=== PATIENT | male | born 1940 | race Caucasian/White ===

== ENCOUNTER 2016-04-13 01:31 | Inpatient (IN) | payer OTHER ==
[~2016-04-13] VITALS: Ht 188 cm; Wt 102.1 kg
[~2016-04-13 01:31] MED LIST: ASPIRIN EC81 M1 PO; FLOMAX0.4 M1 PO
--- NOTE | 2016-04-13 15:06 | Operative Report ---
Operative/Inv Procedure Report Surgery Date: 04/13/16 Name of Procedure: Cystoscopy, laser litho bladder stones, TURP Pre-Operative Diagnosis: Bladder stones and prostatic hypertrophy Post-Operative Diagnosis: Same Estimated Blood Loss: 50ml to 100ml Surgeon/Planing Machine Operator: Bienvenido CARDONA,ATTILA Clark Anesthesia: laryngeal mask airway Drains: 22 Ethiopian three-way [place] for continuous bladder irrigation Specimens: Urine culture and prostate chips and bladder stone fragments Complications: None Condition: Stable Operative Indication: Multiple bladder stones and prostatic hypertrophy Operative/Procedure Note Note: The patient was taken to the cystoscopy room and identified. He was placed supine position on the cystoscopy table in a timeout was executed appropriately with the patient awake. Gen. anesthesia was induced via LMA. He was then placed in dorsal lithotomy position. Bimanual rectal exam revealed an enlarged, nonnodular prostate with no other palpable pelvic masses. He was prepped and draped in usual fashion for cystoscopy. Surgical pause was executed appropriately. The urethral meatus was dilated with sounds to 28 Ethiopian. The continuous flow cystoscope was then placed into the bladder under direct vision using the 30 lens. Anterior urethra was normal. The prostatic urethra showed bilateral lateral lobe prostatic hypertrophy with a length of 4-4/2 cm. Cystoscopy was performed. There were multiple stones in the bladder each about 1 cm in size. The bladder was mildly trabeculated. There was no evidence of bladder tumor or stone. Ureteral orifices were normal in location and appearance. 600 holmium laser fiber was placed through the continuous flow cystoscope. The bladder stones were fragmented. Using the Ellik evacuator all stone fragments were removed from the bladder. The bladder was left full and the cystoscope removed. The 26 Ethiopian resectoscope sheath was placed in the bladder using obturator. Ureteral orifices were identified as was the verumontanum. A TURP was then performed. First the left lateral lobe of the prostate was resected between 1 and 5:00 positions using the bladder neck as the proximal landmark and the verumontanum as a distal landmark. Hemostasis was obtained electrocautery. Next the right lateral lobe of the prostate was resected between the 7:00 and 11:00 positions using same landmarks. Hemostasis was obtained electrocautery. Next the floor the prostatic urethra between 5 and 7:00 positions was resected using the same landmarks. Hemostasis is obtained electrocautery. The roof of the prostatic fossa between 11 and 1:00 positions was resected using the same landmarks. At this point all prostate chips were irrigated from the bladder area hemostasis is obtained electrocautery. No significant bleeding was noted. The prostatic fossa appeared open. The bladder was left full and the resectoscope removed. A 22 Ethiopian three-way hematuria catheter was placed to was bladder irrigation begun with light drainage. Patient's blood pressure the time was 100/60. Patient tolerated the procedure well and as completion was taken to recovery room stable condition. Findings: multiple bladder stones about 1 cm each. Significant prostatic hypertrophy with obstruction Discharge Disposition: PACU
[2016-04-13 19:55] VITALS: BP 150/84
[2016-04-13 22:14] VITALS: BP 148/84
--- NOTE | 2016-04-14 00:12 | NUR ---
NURSING NOTE; LATE ENTRY; PT ADMITTED TO FROM PACU VIA STRETCHER AT 1955. PT ACCOMPANIED BY . PT ALERT AND ORIENTED X3. PT AFEBRILE, DENIES CP AND HAS +PULSES TO BLE. PT ON RA, DENIES SOB, LCTA, MN\\NO DISTRESS NOTED. PT SKIN IS CDI, +BOWEL SOUNDS IN ALL 4 QUADRANTS. PT DEVINE DRAINING CLEAR PINK. PT HAS NO COMPLAINTS AND IS IN NO PAIN. IVF RUNNING PER EMAR. PT ORIENTED TO ROOM AND CALL [facility]. WILL CONTINUE TO MONITOR.
--- NOTE | 2016-04-14 00:15 | NUR ---
NURSING NOTE; LATE ENTRY; UPON ADMISSION, PT BOOD PRESSURE WAS ELEVATED AND WAS 150/84. PT STATES, "I FEEL FINE, MY BLOOD PRESSURE ALWAYS RUNS HIGH AND I DO NOT TAKE ANYTHING AT HOME FOR IT" THIS RN CALLED THE SURGICAL PA #[id number], SURGICAL PA AWARE. NO NEW ORDERS AT THIS TIME. WILL CONTINUE TO MONITOR.
[2016-04-14 00:16] VITALS: BP 138/80
--- NOTE | 2016-04-14 06:57 | PN- Urology ---
Subjective Subjective: Comfortable. No distress Objective Vital Signs and I&Os Vital Signs Date Time Temp Pulse Resp B/P Pulse O2 O2 Flow FiO2 Ox Delivery Rate 04/14 599 95 Room Air Room Air 04/14 0016 97.4 67 20 138/80 95 Room Air 04/13 2214 97.9 68 20 148/84 95 04/13 1954 97 Room Air 04/13 1954 98.4 73 18 150/84 97 Room Air Intake & Output 04/14 0000 04/13 1600 04/13 0000 04/12 1600 Intake Total 400 700 Output Total 2550 Balance -2150 700 Intake, IV 400 200 Intake, Oral 500 Output, Urine 2550 Patient 225 lb Weight Back: No CVA tenderness Abd: soft and non tender Genitalia: 3-way brand in place. Off traction. CBI running at moderate rate with clear to pink efflux Extrems: No calf tenderness Assessment/Plan Assessment/Plan Imp: Stable s/p TURP. Urine too bloody to stop CBI Plan: Continue CBI H/L IV Ambulate Core Measures/Miscellaneous Venous Thromboembolism VTE Risk Factors: Age > 40 VTE Contraindications: No Contraindications VTE Prophylaxis Ordered Inpt: Pharm- Heparin VTE Diagnosis: No Beta Cristal Is Beta Cristal a Home Med? No Antibiotics Is Patient on Antibiotics? No
[2016-04-14 08:21] VITALS: BP 130/70
[2016-04-14 16:26] VITALS: BP 134/78
[2016-04-14 23:56] VITALS: BP 132/76
--- NOTE | 2016-04-15 07:20 | PN- Urology ---
Subjective Subjective: Comfortable Objective Vital Signs and I&Os Vital Signs Date Time Temp Pulse Resp B/P Pulse O2 O2 Flow FiO2 Ox Delivery Rate 04/15 0000 Room Air 04/14 2356 97.6 58 18 132/76 97 Room Air 04/14 1626 97.8 66 18 134/78 94 Room Air 04/14 1600 96 Room Air Room Air 04/14 1207 Room Air 04/14 0937 60 130/70 04/14 0821 97.7 60 20 130/70 95 Room Air 04/14 0800 96 Room Air Room Air Intake & Output 04/15 0800 04/15 0000 04/14 1600 04/14 0800 04/14 0000 04/13 1600 Intake Total 588 903 5930 400 700 Output Total 1500 2199 2049 3150 Balance -1140 -1240 -1050 -2750 700 Intake, IV 200 400 200 Intake, Oral 360 960 800 500 Number 1 Bowel Movements Output, Urine 1500 2199 2049 3150 Patient 225 lb Weight Abd: soft and non tender Genitalia: 3-way brand in place. Drainage clear on slow to moderate CBI Extrems: no calf tenderness Assessment/Plan Assessment/Plan Imp: Stable s/p TURP Plan: D/C CBI. Continue brand ? brand removal later today Core Measures/Miscellaneous Venous Thromboembolism VTE Risk Factors: Age > 40 VTE Contraindications: No Contraindications VTE Prophylaxis Ordered Inpt: Pharm- Heparin VTE Diagnosis: No Beta Cristal Is Beta Cristal a Home Med? No Antibiotics Is Patient on Antibiotics? No
[2016-04-15 08:00] VITALS: BP 142/80
[2016-04-15 16:10] VITALS: BP 124/78
--- NOTE | 2016-04-15 16:42 | PN- Urology ---
Surgical Brief Attending Note Brief Attending Note: Patient voiding well after brand removal. Urine light pink. Plan: discharge home
--- NOTE | 2016-04-15 16:53 | Discharge Summary ---
Visit Information Visit Dates Admission Date: 04/13/16 Discharge Date: 04/15/16 Hospital Course Course Attending Physician: Bienvenido CARDONA,ATTILA Clark Primary Care Physician: IZA HUI MD Hospital Course: The patient underwent cystoscopy, laser lithotripsy of bladder stones andTURP on 04/13/16. His post op course was uneventful and he was discharged home on 04/15/16 voiding spontaneously. The urine was light pink. Complications: none Allergies: Coded Allergies: No Known Allergies (04/02/16) Significant Procedures: Cystoscopy, laser lithotripsy of bladder stones andTURP Disposition Summary Disposition Principal Diagnosis: Bladder calculi and prostatic hypertrophy with obstruction Additional Diagnosis: Bladder stones Discharge Disposition: home or self care Discharge Instructions General Discharge Information Code Status: Full Code Patient's Diet: Regular Patient's Activity: Light only Follow-Up Instructions/Appts: Office visit in 2-3 weeks Medications at Discharge Discharge Medications: Stop taking the following medications: Aspirin (Ecotrin*) 81 MG TABLET.DR ORAL DAILY Continue taking these medications: Tamsulosin HCl (Flomax) 0.4 MG CAP.ER.24H 1 Capsule ORAL DAILY Comments: DOCUMENTED PER CMR DURING PRE-SX INTERVIEW Copies To: IZA HUI MD
== END 2016-04-15 17:25 | DRG 694 ==
LOC: STS 01:31 → 2NB 19:39
PROVIDERS: ADMIT Urology
PROC: 0TCB8ZZ Extirpation of Matter from Bladder, Via Natural or Artificial Opening Endoscopic (ICD-10-PCS; principal; 2016-04-13)
DX: N21.0 Calculus in bladder (principal); N13.8 Other obstructive and reflux uropathy; I10 Essential (primary) hypertension; N40.1 Benign prostatic hyperplasia with lower urinary tract symptoms; E78.00 Pure hypercholesterolemia, unspecified
CPT/HCPCS: 2NBSP; 82355; 87086; 88305; J0131; J0690; J1644; J2405; J7042